=== PATIENT | female | born 1970 | race Caucasian/White ===

== ENCOUNTER 2016-07-08 23:22 | Emergency (ER) | payer SELFPAY ==
[~2016-07-08 23:22] MED LIST: ADULT ASPIRIN81 MG PO; AMOXIL500 MG PO; ASPIRIN-DIPYRI1 EACH PO; ASPIRIN325 M3 PO; BENTYL20 M1 PO; CLARITIN10 MG; COMPAZINE10 M PO; CYCLOBENZAPRINE10 M1 PO; CYCLOBENZAPRINE10 MG PO; DOXYCYCLINE HY100 M2 PO; FLEXERIL10 MG PO; HYDROCHLOROTH12.5 MG PO; HYDROCHLOROTHIA25 MG PO; LIPITOR20 M1 PO; LIPITOR40 M1 PO; LISINOPRIL20 MG PO; METOPROLOL SUCC25 M1 PO; MIRALAX17 G2 PO; MUCUS RELIEF D1 EACH PO; NAPROSYN500 MG; NASACORT AQ16.5 GM NS; NO HOME MEDICATION XX; NORCO 5/325 TAB1 TAB PO; NORCO 5/3251 TA1 PO; PERCOCET 5/3251 TAB PO; POTASSIUM595 ( 99 ) PO; PREDNISONE10 MG PO; TRAMADOL HCL50 MG PO; TYLENOL500 MG; XARELTO15 M1 PO; XARELTO20 M1 PO; XARELTO20 MG PO; ZOFRAN ODT4 MG/UDTAB PO; ZOFRAN4 M2 PO; [UNRECOGNIZED DRUG - OTHER]; [UNRECOGNIZED DRUG - OTHER]; [UNRECOGNIZED DRUG - OTHER] PO
[2016-07-08] MEDS ORDERED: [UNRECOGNIZED DRUG - OTHER] (23:40)
[2016-07-08] MEDS ORDERED: VITAMIN D31000 UNI3 (23:42)
[2016-07-08] MEDS ORDERED: CYMBALTA60 M1 PO (23:43)
[2016-07-08] MEDS ORDERED: MELATIN3 MG (23:43)
[2016-07-08] MEDS ORDERED: ASPIRIN EC81 MG PO (23:43)
[2016-07-08] MEDS ORDERED: ZYRTEC10 M9 PO (23:44)
== END 2016-07-09 01:10 ==
LOC: EDMED 23:22
DX: R51 Headache (principal); R11.0 Nausea; F17.200 Nicotine dependence, unspecified, uncomplicated; Z88.5 Allergy status to narcotic agent
CPT/HCPCS: J1200; J1885; J2405; J2765; J7030